=== PATIENT | male | born 1965 ===

== ENCOUNTER 2019-03-25 22:05 | Inpatient (IN) | payer MEDICAID, OTHER ==
[2019-03-25] MEDS ORDERED: Sodium Chloride 0.9% 1,000 ML IV STA ×2 (22:20→23:04)
[2019-03-25] MEDS ORDERED: Sodium Chloride 0.9% 1,000 ML IV SCH (22:30)
--- NOTE | 2019-03-25 22:31 | ED PDOC ---
Arrival/HPI - General Chief Complaint: GI Problem Time Seen by Provider: 03/25/19 22:09 Historian: Patient - Critical Care Critical Care Minutes: 45 minutes - History of Present Illness Narrative History of Present Illness (Text): 03/25/19 22:33 53 year old male, with a past medical history of liver cirrhosis and chronic alcohol abuse, who presents to the emergency department BIB ambulance following episode of vomiting of blood earlier today. Patient reports he was drinking beer earlier today. Patient endorses generalized weakness. He denies any abdominal pain or chest pain. Time/Duration: 24 hours Symptom Onset: Gradual Symptom Course: Unchanged Activities at Onset: Light Context: Home Past Medical History - Provider Review Nursing Documentation Reviewed: Yes - Cardiac Hx Cardiac Disorders: No - Pulmonary Hx Respiratory Disorders: No - Neurological Hx Neurological Disorder: No - HEENT Hx HEENT Disorder: No - Renal Hx Renal Disorder: No - Endocrine/Metabolic Hx Endocrine Disorders: No - Hematological/Oncological Hx Cirrhosis: Yes - Integumentary Hx Dermatological Disorder: No - Musculoskeletal/Rheumatological Hx Musculoskeletal Disorders: No - Gastrointestinal Hx Gastrointestinal Disorders: Yes Other/Comment: liver problem - Genitourinary/Gynecological Hx Genitourinary Disorders: No - Psychiatric Hx Psychophysiologic Disorder: No Hx Substance Use: No - Anesthesia Hx Anesthesia: No Family/Social History - Physician Review Nursing Documentation Reviewed: Yes Family/Social History: Unknown Family HX Smoking Status: Never Smoked Hx Alcohol Use: Yes Hx Substance Use: No Allergies/Home Meds Allergies/Adverse Reactions: Allergies guaifenesin [From Robitussin] Allergy (Verified 03/25/19 22:16) RASH Home Medications: Home Meds Medication Instructions Recorded Confirmed Folic Acid 1 mg PO DAILY 03/25/19 03/25/19 Review of Systems - Physician Review All systems were reviewed & negative as marked: Yes - Review of Systems Gastrointestinal: Vomiting, Hematemesis. absent: Abdominal Pain Physical Exam Vital Signs Reviewed: Yes Vital Signs Temp Pulse Resp BP Pulse Ox 03/25/19 22:05 97.7 F 115 H 20 88/51 L 100 Temperature: Afebrile Blood Pressure: Normal Pulse: Tachycardic Respiratory Rate: Normal Appearance: Positive for: Well-Appearing, Non-Toxic, Comfortable Pain Distress: None Mental Status: Positive for: Alert and Oriented X 3 - Systems Exam Head: Present: Atraumatic, Normocephalic Pupils: Present: PERRL Extroacular Muscles: Present: EOMI Conjunctiva: Present: Normal Mouth: Present: Moist Mucous Membranes Neck: Present: Normal Range of Motion, Other (neck supple) Respiratory/Chest: Present: Clear to Auscultation, Good Air Exchange. No: Respiratory Distress, Accessory Muscle Use Cardiovascular: Present: Regular Rate and Rhythm, Normal S1, S2. No: Murmurs Abdomen: Present: Other (abdomen soft). No: Tenderness, Distention, Peritoneal Signs Back: Present: Normal Inspection Upper Extremity: Present: Normal Inspection. No: Cyanosis, Edema Lower Extremity: Present: Normal Inspection. No: Edema Neurological: Present: GCS=15, Speech Normal Skin: Present: Warm, Dry, Normal Color, Other (few scattered areas of ecchymosis to legs and arms). No: Rashes Psychiatric: Present: Alert, Oriented x 3, Normal Insight, Normal Concentration Medical Decision Making ED Course and Treatment: 03/25/19 22:28 Impression: 53 year old male presents to the ED complaining of vomiting blood x earlier today. Differential Diagnosis included but are not limited to: Plan: -- EKG -- Labs -- Chest X-ray -- Protonix -- Iv fluids -- Zofran -- Sandostatin -- Reassess and disposition Prior Visits: Notes and results from previous visits were reviewed. Progress Notes: 03/25/19 22:40 Patient actively vomiting profuse amount of blood. Patient is in the process of receiving IV fluids. Stat O- blood. 03/25/19 23:06 Case was discussed with surgical senior resident who came to the emergency room to evaluate the patient and for central line placement. Dr. Chung, surgical service on consult. Case was discussed the GI fellow , under GI , agrees with current treatment, Iv PRBCs sandostatin, Iv protonix. recommend Iv Rocephin , will come to evaluate patient. Dr. Dixon, ground service equipment mechanic in the ED to evaluate patient, accepts to the intensive care unit.Patient admitted. - RAD Interpretation Radiology Orders: 03/25/19 22:17 CHEST PORTABLE [RAD] Stat - EKG Interpretation EKG Interpretation (Text): 03/25/19 22:38 EKG reviewed, shows: Sinus Tachycardia at 118 bpm, no acute changes. Interpreted by ED Physician: Yes - Medication Orders Current Medication Orders: Sodium Chloride (Sodium Chloride 0.9%) 1,000 mls @ 100 mls/hr IV .Q10H GERMAN Sodium Chloride (Sodium Chloride 0.9%) 1,000 mls @ 999 mls/hr IV .Q1H1M STA Stop: 03/25/19 23:20 Discontinued Medications Ondansetron HCl (Zofran Inj) 4 mg IVP ONCE ONE Stop: 03/25/19 22:19 Pantoprazole Sodium (Protonix Inj) 40 mg IVP ONCE STA Stop: 03/25/19 22:19 - Scribe Statement The provider has reviewed the documentation as recorded by the Amandaibcecilio Sanchez All medical record entries made by the Amandaibcecilio were at my direction and personally dictated by me. I have reviewed the chart and agree that the record accurately reflects my personal performance of the history, physical exam, medical decision making, and the department course for this patient. I have also personally directed, reviewed, and agree with the discharge instructions and disposition. Disposition/Present on Arrival - Present on Arrival Any Indicators Present on Arrival: No History of DVT/PE: No History of Uncontrolled Diabetes: No Urinary Catheter: No History of Decub. Ulcer: No History Surgical Site Infection Following: None - Disposition Have Diagnosis and Disposition been Completed?: Yes Diagnosis: Upper gastrointestinal bleed Disposition: HOSPITALIZED Disposition Time: 23:26 Patient Plan: Admission Patient Problems: Current Active Problems Problem Status Onset Upper gastrointestinal bleed Acute Condition: GUARDED
[2019-03-25 22:42] LABS: HEMOGLOBIN 9.4 g/dL (14.0-18.0); MEAN CELL VOLUME 102.2 fl (80.0-105.0); MEAN CORPUSCULAR HEMOGLOBIN 34.2 pg (25.0-35.0); MEAN CORPUSCULAR HGB CONC 33.5 g/dl (31.0-37.0); MEAN PLATELET VOLUME 11.3 fl (7.0-11.0); RBC 2.75 10^6/uL (3.5-6.1); RED CELL DISTRIBUTION WIDTH 15.5 % (11.5-14.5)
[2019-03-25 22:52] LABS: INR 1.59; PARTIAL THROMBOPLASTIN TIME 30.4 Seconds (26.9-38.3); PROTHROMBIN TIME 17.7 SECONDS (9.4-12.5)
[2019-03-25 22:53] LABS: ALB/GLOB RATIO 0.6 (1.1-1.8); ALBUMIN 2.7 g/dL (3.0-4.8); ALT/SGPT 16 U/L (7-56); AST/SGOT 135 U/L (17-59); BLOOD UREA NITROGEN 3 mg/dL (7-21); CALCIUM 7.9 mg/dL (8.4-10.5); GFR NON-AFRICAN AMERICAN > 60
[2019-03-25 23:05] LABS: TROPONIN I < 0.01 ng/mL
[2019-03-25] MEDS: Pantoprazole 40mg/100mL NS 40 MG/100 ML BAG IVPB SCH (23:15)
[2019-03-25] MEDS ORDERED: Potassium Chloride 20 mEq 100 ML IV ONE (23:17)
[2019-03-25] MEDS ORDERED: cefTRIAXone 1 gm 1 GM/100 ML BAG IV STA (23:17)
[2019-03-25 23:28] LABS: CK-MB 3.3 ng/mL (0.0-3.6)
--- NOTE | 2019-03-26 00:05 | PCM.PROC ---
Procedures Attestation:: I certify that I have explained the specified Operation(s) or Procedure(s), risks, benefits and reasonable alternatives to the Patient and/or other person responsible. The opportunity was given to ask questions and all questions answered - Central Line Placement Right Internal Jugular Triple Lumen Catheter Aseptic technique was employed throughout the procedure: Hand Hygiene done prior to procedure, Full sterile barriers (mask, hair cover, sterile gown, sterile gloves), Full body sterile drape, Chloraprep Antiseptic: 30 second prep for IJ or SC sites CVP Time Out Performed: Yes Pt. Placed on Pulse Ox Monitor: Yes Central Line Prep: Chlorhexidine-Alcohol Combination Local Anesthesia Used: Lidocaine 1% Amount of Anesthesia Used (mls): 5 Ultrasound Used for Placement: Yes Central Line Lumen Inserted: triple Central Line Length: 20 cm (15cm at the skin) Post Procedure: Sutured in Place, Good Blood Return, All Ports Aspirated, Flushed, Capped, Sterile Dressing Applied Secured by: Suture Post procedure dressing: Clear vapor permeable, Chlorhexidine disc (Biopatch) Post Procedure X-Ray: Yes Patient Tolerated Procedure: Well Immediate Complications: None Additional Comments: Dr. Machado supervised the placement of the central line.
[2019-03-26] MEDS ORDERED: Ketamine 10 mg/ml Inj (20 ml) IV ONE (00:25)
[2019-03-26] MEDS ORDERED: Ketamine 10 mg/ml Inj (20 ml) ONE (00:25)
[2019-03-26] MEDS ORDERED: Etomidate 20 mg/10ml Inj IVP STA (00:25)
[2019-03-26] MEDS ORDERED: Etomidate 20 mg/10ml Inj IV ONE (00:28)
--- NOTE | 2019-03-26 00:32 | CP.PCM.CON ---
<Travis Morse - Last Filed: 03/26/19 00:58> History of Present Illness - History of Present Illness History of Present Illness: PGY-4 GI Fellow GI Consult Note The following obtained from chart review due to clinical condition. Pt is a 53 yo HM with EtOH Cirrhosis, EtOH Abuse (last drink on 03/25/19) presenting with hematemesis. Pt reportedly had hematemesis at some with some generalized weakness/fatigue. Recent, ongoing EtOH abuse. Otherwise unable to obtain further details regarding history. In ED multiple episodes of hematemesis noted, pt tachycardic and hypotensive. Central line placed and intubated with more hematemesis noted post-intubation. He briefly became bradycardia and lost pulse but fairly quickly regain pulse post atropine and epinephrine. Unable to obtain ROS due to clinical condition. MHx: See above SurgHx: Unknown Meds: Reviewed in chart FamHx: Unknown SocHx: + EtOH Abuse (last drink reportedly on 03/27); Unknown others All: Guaifenesin Past Patient History - Past Social History Smoking Status: Never Smoked - CARDIAC Hx Cardiac Disorders: No - PULMONARY Hx Respiratory Disorders: No - NEUROLOGICAL Hx Neurological Disorder: No - HEENT Hx HEENT Problems: No - RENAL Hx Chronic Kidney Disease: No - ENDOCRINE/METABOLIC Hx Endocrine Disorders: No - HEMATOLOGICAL/ONCOLOGICAL Hx Cirrhosis: Yes - INTEGUMENTARY Hx Dermatological Problems: No - MUSCULOSKELETAL/RHEUMATOLOGICAL Hx Musculoskeletal Disorders: No - GASTROINTESTINAL Hx Gastrointestinal Disorders: Yes Other/Comment: liver problem - GENITOURINARY/GYNECOLOGICAL Hx Genitourinary Disorders: No - PSYCHIATRIC Hx Psychophysiologic Disorder: No Hx Substance Use: No - SURGICAL HISTORY Hx Surgeries: No - ANESTHESIA Hx Anesthesia: No Meds Allergies/Adverse Reactions: Allergies Allergy/AdvReac Type Severity Reaction Status Date / Time guaifenesin [From Serenasin] Allergy RASH Verified 03/25/19 22:16 - Medications Medications: Current Medications Sodium Chloride (Sodium Chloride 0.9%) 1,000 mls @ 100 mls/hr IV .Q10H GERMAN Last Admin: 03/25/19 22:50 Dose: 100 mls/hr Octreotide Acetate 1,250 mcg/ (Sodium Chloride) 252.5 mls @ 5.05 mls/hr IV .Q24H GERMAN; Protocol Last Admin: 03/25/19 23:10 Dose: 5.05 mls/hr Pantoprazole Sodium (Protonix 40mg Ivpb) 40 mg in 100 mls @ 20 mls/hr IVPB .Q5H GERMAN Last Admin: 03/25/19 23:15 Dose: 20 mls/hr Potassium Chloride (Potassium Chloride 20 Meq/100 Ml) 100 mls @ 50 mls/hr IV ONCE ONE Stop: 03/26/19 01:16 Physical Exam - Constitutional Appears: In Acute Distress, Chronically Ill - Head Exam Head Exam: ATRAUMATIC, NORMAL INSPECTION - Eye Exam Eye Exam: EOMI, Scleral icterus - ENT Exam ENT Exam: Mucous Membranes Moist. absent: Mucous Membranes Dry - Respiratory Exam Additional comments: symmetric expansion, coarse breath sounds anteriorly - Cardiovascular Exam Cardiovascular Exam: Tachycardia, RRR - GI/Abdominal Exam GI & Abdominal Exam: Diminished Bowel Sounds, Distended. absent: Bruit, Firm - Rectal Exam Rectal Exam: Deferred - Extremities Exam Extremities exam: Positive for: pedal edema (+1 bilateral in LE extremities) - Neurological Exam Additional comments: on vent, not alert - Skin Skin Exam: Warm Additional comments: jaundice with scattered area of dried blood. Results - Vital Signs Recent Vital Signs: Last Vital Signs Temp 96.3 F L 03/25/19 23:55 Pulse 117 H 03/25/19 23:56 Resp 16 03/25/19 23:56 BP 78/47 L 03/25/19 23:56 Pulse Ox 97 03/25/19 23:56 - Labs Result Diagrams: 03/25/19 22:37 03/25/19 22:37 Labs: Laboratory Results - last 24 hr 03/25/19 03/25/19 03/25/19 22:37 22:37 22:37 WBC 11.0 RBC 2.75 L Hgb 9.4 L Hct 28.1 L MCV 102.2 MCH 34.2 MCHC 33.5 RDW 15.5 H Plt Count 91 L MPV 11.3 H PT 17.7 H INR 1.59 APTT 30.4 Sodium 141 Potassium 3.3 L Chloride 108 H Carbon Dioxide 16 L Anion Gap 19 BUN 3 L Creatinine 0.9 Est GFR ( Amer) > 60 Est GFR (Non-Af Amer) > 60 Random Glucose 152 H Calcium 7.9 L Total Bilirubin 7.6 H AST 135 H ALT 16 Alkaline Phosphatase 263 H Lactate Dehydrogenase 599 Total Creatine Kinase 369 H CK-MB (CK-2) 3.3 CK-MB (CK-2) % Cancelled Troponin I < 0.01 Total Protein 7.0 Albumin 2.7 L Globulin 4.4 Albumin/Globulin Ratio 0.6 L Blood Type Blood Type Confirm Antibody Screen Crossmatch BBK History Checked 03/25/19 03/25/19 22:37 22:39 WBC RBC Hgb Hct MCV MCH MCHC RDW Plt Count MPV PT INR APTT Sodium Potassium Chloride Carbon Dioxide Anion Gap BUN Creatinine Est GFR ( Amer) Est GFR (Non-Af Amer) Random Glucose Calcium Total Bilirubin AST ALT Alkaline Phosphatase Lactate Dehydrogenase Total Creatine Kinase CK-MB (CK-2) CK-MB (CK-2) % Troponin I Total Protein Albumin Globulin Albumin/Globulin Ratio Blood Type A POSITIVE Blood Type Confirm A POSITIVE Antibody Screen Negative Crossmatch See Detail BBK History Checked No verified bt Assessment & Plan - Assessment and Plan (Free Text) Assessment: 53 yo Hisp male with EtOH Abuse, EtOH Cirrhosis presenting with hematemesis. # Hematemesis: Hemodynamically unstable. Concerning for portal HTN related bleed, possible variceal bleed. # EtOH Cirrhosis: MELD-Na 19. Active drinker. - EGD: None on file - Ascites: appreciated on exam, unknown if on diuretics - HCC: No prior imaging # EtOH Abuse: Last drink on 03/25 Plan: - Plan for emergent EGD - Aggressive IVF resuscitation per critical care - Goal Hgb 7-8 in setting of portal HTN - PPI and Octreotide gtts - Ceftriaxone or broad spectrum abx for SBP ppx - Will eventually need diagnostic tap (avoid large volume), fluid analysis - BCx, UA, UCx - Abd US with Duplex - Further recs pending EGD Pt discussed with Dr. Barrera; please see attestation for further recs/changes. <Anastacia Barrera - Last Filed: 03/26/19 02:26> Meds - Medications Medications: Current Medications Folic Acid (Folic Acid) 1 mg NG DAILY GERMAN Sodium Chloride (Sodium Chloride 0.9%) 1,000 mls @ 100 mls/hr IV .Q10H GERMAN Last Admin: 03/25/19 22:50 Dose: 100 mls/hr Octreotide Acetate 1,250 mcg/ (Sodium Chloride) 252.5 mls @ 5.05 mls/hr IV .Q24H GERMAN; Protocol Last Admin: 03/25/19 23:10 Dose: 5.05 mls/hr Pantoprazole Sodium (Protonix 40mg Ivpb) 40 mg in 100 mls @ 20 mls/hr IVPB .Q5H GERMAN Last Admin: 03/25/19 23:15 Dose: 20 mls/hr Albumin Human (Albumin Human 25% (25 Gm/100 Ml)) 100 mls @ 50 mls/hr IV Q2H GERMAN Stop: 03/26/19 04:59 Last Admin: 03/26/19 00:58 Dose: 50 mls/hr Sodium Bicarbonate 150 meq/ (Sodium Chloride) 1,150 mls @ 100 mls/hr IV .[id number] STA Stop: 03/26/19 12:43 Last Admin: 03/26/19 01:36 Dose: 100 mls/hr Dopamine HCl/Dextrose (Dopamine 400mg/250ml D5w) 400 mg in 250 mls @ 56.132 mls/hr IV .Q4H28M PRN; Protocol PRN Reason: TITRATE PER MD ORDER Last Admin: 03/26/19 00:50 Dose: 20 mcg/kg/min, 56.132 mls/hr Thiamine HCl (Vitamin B1 Tab) 100 mg NG DAILY [facility] Results - Vital Signs Recent Vital Signs: Last Vital Signs Temp 96.1 F L 03/26/19 00:45 Pulse 115 H 03/26/19 00:50 Resp 14 03/26/19 00:45 BP 46/36 L 03/26/19 00:50 Pulse Ox 97 03/25/19 23:56 - Labs Result Diagrams: 03/25/19 22:37 03/25/19 22:37 Labs: Laboratory Results - last 24 hr 03/25/19 03/25/19 03/25/19 22:37 22:37 22:37 WBC 11.0 RBC 2.75 L Hgb 9.4 L Hct 28.1 L MCV 102.2 MCH 34.2 MCHC 33.5 RDW 15.5 H Plt Count 91 L MPV 11.3 H PT 17.7 H INR 1.59 APTT 30.4 pCO2 pO2 HCO3 ABG pH ABG Total CO2 ABG O2 Saturation ABG Base Excess ABG Potassium Glucose Lactate FiO2 Crit Value Called To Crit Value Called By Blood Gas Notified Time Sodium 141 Potassium 3.3 L Chloride 108 H Carbon Dioxide 16 L Anion Gap 19 BUN 3 L Creatinine 0.9 Est GFR ( Amer) > 60 Est GFR (Non-Af Amer) > 60 Random Glucose 152 H Calcium 7.9 L Total Bilirubin 7.6 H AST 135 H ALT 16 Alkaline Phosphatase 263 H Lactate Dehydrogenase 599 Total Creatine Kinase 369 H CK-MB (CK-2) 3.3 CK-MB (CK-2) % Cancelled Troponin I < 0.01 Total Protein 7.0 Albumin 2.7 L Globulin 4.4 Albumin/Globulin Ratio 0.6 L Arterial Blood Potassium Alcohol, Quantitative Blood Type Blood Type Confirm Antibody Screen Crossmatch BBK History Checked 03/25/19 03/25/19 03/25/19 22:37 22:37 22:39 WBC RBC Hgb Hct MCV MCH MCHC RDW Plt Count MPV PT INR APTT pCO2 pO2 HCO3 ABG pH ABG Total CO2 ABG O2 Saturation ABG Base Excess ABG Potassium Glucose Lactate FiO2 Crit Value Called To Crit Value Called By Blood Gas Notified Time Sodium Potassium Chloride Carbon Dioxide Anion Gap BUN Creatinine Est GFR ( Amer) Est GFR (Non-Af Amer) Random Glucose Calcium Total Bilirubin AST ALT Alkaline Phosphatase Lactate Dehydrogenase Total Creatine Kinase CK-MB (CK-2) CK-MB (CK-2) % Troponin I Total Protein Albumin Globulin Albumin/Globulin Ratio Arterial Blood Potassium Alcohol, Quantitative 231 H Blood Type A POSITIVE Blood Type Confirm A POSITIVE Antibody Screen Negative Crossmatch See Detail BBK History Checked No verified bt 03/26/19 00:50 WBC RBC Hgb Hct MCV MCH MCHC RDW Plt Count MPV PT INR APTT pCO2 59 H pO2 24.0 L* HCO3 10.8 L ABG pH 6.87 L* ABG Total CO2 12.6 L ABG O2 Saturation 27.3 L ABG Base Excess -23.0 L ABG Potassium 3.2 L Glucose 163 H Lactate 10.5 H* FiO2 100.0 Crit Value Called To Dr loyd Crit Value Called By Rt Blood Gas Notified Time 100 Sodium 149.0 H Potassium Chloride 120.0 H Carbon Dioxide Anion Gap BUN Creatinine Est GFR ( Amer) Est GFR (Non-Af Amer) Random Glucose Calcium Total Bilirubin AST ALT Alkaline Phosphatase Lactate Dehydrogenase Total Creatine Kinase CK-MB (CK-2) CK-MB (CK-2) % Troponin I Total Protein Albumin Globulin Albumin/Globulin Ratio Arterial Blood Potassium 3.2 L Alcohol, Quantitative Blood Type Blood Type Confirm Antibody Screen Crossmatch BBK History Checked Attending/Attestation - Attestation I have personally seen and examined this patient.: Yes I have fully participated in the care of the patient.: Yes I have reviewed all pertinent clinical information: Yes Notes (Text): 03/26/19 02:22 I have seen and examined the pt with the GI fellow. This is a 53 yo M with active EtOH abuse and decompensated cirrhosis presenting with multiple episodes of hematemesis at home and in the ER, totalling approximately 3.5L. Pt tachycardic with persistent hypotension now s/p intubation and started on dopamine gtt for pressor support. Started on ppi gtt and octreotide gtt. BP ~40/20. Received 4U RBCs. Discussed high risk of mortality and morbidity given situation, but pt's daughter states they want everything done. Will proceed with bedside EGD at this time.
[2019-03-26] MEDS ORDERED: [UNRECOGNIZED DRUG - OTHER] IV ONE (00:48)
[2019-03-26] MEDS ORDERED: DOPAMINE 400 MG/250 ML IV ONE (00:48)
[2019-03-26] MEDS: DOPamine 400mg/250ml D5W 400 MG/250 ML BAG IV PRN ×2 (00:50→08:00)
[2019-03-26 01:00] LABS: ARTERIAL BLOOD GAS HCO3 10.8 mmol/L (21-28); ARTERIAL BLOOD GAS O2 SAT 27.3 % (95-98); ARTERIAL BLOOD GAS PCO2 59 mm/Hg (35-45); ARTERIAL BLOOD GAS PH 6.87 (7.35-7.45); ARTERIAL BLOOD GAS TCO2 12.6 mmol.L (22-28)
[2019-03-26] MEDS ORDERED: Sodium Bicarbonate (8.4%) 50 Meq Syringe IVP ONE ×3 (01:09→01:13)
--- NOTE | 2019-03-26 01:19 | CP.PCM.CON ---
History of Present Illness - History of Present Illness History of Present Illness: General Surgery Consult Re: GI bleed HPI: 53M with presenting with hematemesis. Per Daughter, pt had 2x hematemesis at home and some general weakness/fatigue. Had been diagnosed in the past with cirrhosis and told to stop EtOH use but later relapsed. Daughter also noted he had begun having nosebleeds and bleeding gums recently. When pt examined at bedside had several episodes of hematemesis. Unable to obtain ROS due to AMS. Pt continued to become more confused. Pt was tachycardic and hypotensive. 2U PRBCs and 2L NS bolus given. Central line placed and intubated with more hematemesis noted post-intubation. Had several episodes of bradycardia during this time and eventually lost pulse after intubation. Had ROSC post CPR, atropine, and 2x epinephrine. Ash-Casiano Class: C Meld-NA: 19 PMH: EtOH Cirrhosis, EtOH Abuse (last drink on 03/25/19) PSH: Denied by daughter Meds: See MAR FH: Non Contributory SH: + EtOH Abuse (last drink today 03/25) Drinks 12-15 Beers. No tobacco use or drug use All: Guaifenesin Review of Systems - Review of Systems Systems not reviewed;Unavailable: Altered Mental Status Past Patient History - Past Social History Smoking Status: Never Smoked - CARDIAC Hx Cardiac Disorders: No - PULMONARY Hx Respiratory Disorders: No - NEUROLOGICAL Hx Neurological Disorder: No - HEENT Hx HEENT Problems: No - RENAL Hx Chronic Kidney Disease: No - ENDOCRINE/METABOLIC Hx Endocrine Disorders: No - HEMATOLOGICAL/ONCOLOGICAL Hx Cirrhosis: Yes - INTEGUMENTARY Hx Dermatological Problems: No - MUSCULOSKELETAL/RHEUMATOLOGICAL Hx Musculoskeletal Disorders: No - GASTROINTESTINAL Hx Gastrointestinal Disorders: Yes Other/Comment: liver problem - GENITOURINARY/GYNECOLOGICAL Hx Genitourinary Disorders: No - PSYCHIATRIC Hx Psychophysiologic Disorder: No Hx Substance Use: No - SURGICAL HISTORY Hx Surgeries: No - ANESTHESIA Hx Anesthesia: No Meds Allergies/Adverse Reactions: Allergies Allergy/AdvReac Type Severity Reaction Status Date / Time guaifenesin [From Shaggy] Allergy RASH Verified 03/25/19 22:16 - Medications Medications: Current Medications Sodium Chloride (Sodium Chloride 0.9%) 1,000 mls @ 100 mls/hr IV .Q10H GERMAN Last Admin: 03/25/19 22:50 Dose: 100 mls/hr Octreotide Acetate 1,250 mcg/ (Sodium Chloride) 252.5 mls @ 5.05 mls/hr IV .Q24H GERMAN; Protocol Last Admin: 03/25/19 23:10 Dose: 5.05 mls/hr Pantoprazole Sodium (Protonix 40mg Ivpb) 40 mg in 100 mls @ 20 mls/hr IVPB .Q5H GERMAN Last Admin: 03/25/19 23:15 Dose: 20 mls/hr Potassium Chloride (Potassium Chloride 20 Meq/100 Ml) 100 mls @ 50 mls/hr IV ONCE ONE Stop: 03/26/19 01:16 Albumin Human (Albumin Human 25% (25 Gm/100 Ml)) 100 mls @ 50 mls/hr IV Q2H GERMAN Stop: 03/26/19 04:59 Physical Exam - Constitutional Appears: In Acute Distress, Chronically Ill - Head Exam Head Exam: ATRAUMATIC, NORMOCEPHALIC - Eye Exam Eye Exam: EOMI, Scleral icterus - ENT Exam ENT Exam: Mucous Membranes Dry Additional comments: old blood in mouth trachea midline. - Neck Exam Neck exam: Negative for: Tenderness, Thyromegaly - Respiratory Exam Additional comments: Intubated - Cardiovascular Exam Cardiovascular Exam: Tachycardia, REGULAR RHYTHM - GI/Abdominal Exam GI & Abdominal Exam: Hernia (umbilican), Soft. absent: Distended, Firm, Guarding, Rebound, Rigid, Tenderness - Rectal Exam Rectal Exam: Deferred - Extremities Exam Extremities exam: Negative for: calf tenderness, pedal edema - Back Exam Back exam: absent: CVA tenderness (L), CVA tenderness (R) - Neurological Exam Neurological exam: Altered - Skin Skin Exam: Dry Additional comments: jaundice Results - Vital Signs Recent Vital Signs: Last Vital Signs Temp 96.3 F L 03/25/19 23:55 Pulse 117 H 03/25/19 23:56 Resp 16 03/25/19 23:56 BP 78/47 L 03/25/19 23:56 Pulse Ox 97 03/25/19 23:56 - Labs Result Diagrams: 03/25/19 22:37 03/25/19 22:37 Labs: Laboratory Results - last 24 hr 03/25/19 03/25/19 03/25/19 22:37 22:37 22:37 WBC 11.0 RBC 2.75 L Hgb 9.4 L Hct 28.1 L MCV 102.2 MCH 34.2 MCHC 33.5 RDW 15.5 H Plt Count 91 L MPV 11.3 H PT 17.7 H INR 1.59 APTT 30.4 pCO2 pO2 HCO3 ABG pH ABG Total CO2 ABG O2 Saturation ABG Base Excess ABG Potassium Glucose Lactate FiO2 Crit Value Called To Crit Value Called By Blood Gas Notified Time Sodium 141 Potassium 3.3 L Chloride 108 H Carbon Dioxide 16 L Anion Gap 19 BUN 3 L Creatinine 0.9 Est GFR ( Amer) > 60 Est GFR (Non-Af Amer) > 60 Random Glucose 152 H Calcium 7.9 L Total Bilirubin 7.6 H AST 135 H ALT 16 Alkaline Phosphatase 263 H Lactate Dehydrogenase 599 Total Creatine Kinase 369 H CK-MB (CK-2) 3.3 CK-MB (CK-2) % Cancelled Troponin I < 0.01 Total Protein 7.0 Albumin 2.7 L Globulin 4.4 Albumin/Globulin Ratio 0.6 L Arterial Blood Potassium Alcohol, Quantitative Blood Type Blood Type Confirm Antibody Screen Crossmatch BBK History Checked 03/25/19 03/25/19 03/25/19 22:37 22:37 22:39 WBC RBC Hgb Hct MCV MCH MCHC RDW Plt Count MPV PT INR APTT pCO2 pO2 HCO3 ABG pH ABG Total CO2 ABG O2 Saturation ABG Base Excess ABG Potassium Glucose Lactate FiO2 Crit Value Called To Crit Value Called By Blood Gas Notified Time Sodium Potassium Chloride Carbon Dioxide Anion Gap BUN Creatinine Est GFR ( Amer) Est GFR (Non-Af Amer) Random Glucose Calcium Total Bilirubin AST ALT Alkaline Phosphatase Lactate Dehydrogenase Total Creatine Kinase CK-MB (CK-2) CK-MB (CK-2) % Troponin I Total Protein Albumin Globulin Albumin/Globulin Ratio Arterial Blood Potassium Alcohol, Quantitative 231 H Blood Type A POSITIVE Blood Type Confirm A POSITIVE Antibody Screen Negative Crossmatch See Detail BBK History Checked No verified bt 03/26/19 00:50 WBC RBC Hgb Hct MCV MCH MCHC RDW Plt Count MPV PT INR APTT pCO2 59 H pO2 24.0 L* HCO3 10.8 L ABG pH 6.87 L* ABG Total CO2 12.6 L ABG O2 Saturation 27.3 L ABG Base Excess -23.0 L ABG Potassium 3.2 L Glucose 163 H Lactate 10.5 H* FiO2 100.0 Crit Value Called To Dr loyd Crit Value Called By Rt Blood Gas Notified Time 100 Sodium 149.0 H Potassium Chloride 120.0 H Carbon Dioxide Anion Gap BUN Creatinine Est GFR ( Amer) Est GFR (Non-Af Amer) Random Glucose Calcium Total Bilirubin AST ALT Alkaline Phosphatase Lactate Dehydrogenase Total Creatine Kinase CK-MB (CK-2) CK-MB (CK-2) % Troponin I Total Protein Albumin Globulin Albumin/Globulin Ratio Arterial Blood Potassium 3.2 L Alcohol, Quantitative Blood Type Blood Type Confirm Antibody Screen Crossmatch BBK History Checked - EKG Data EKG Interpreted by: Myself EKG shows normal: Sinus rhythm Rate: Tachycardia - Imaging and Cardiology Chest x-ray Status: Image reviewed by me Assessment & Plan - Assessment and Plan (Free Text) Assessment: 53M with Likely Upper GI bleed secondary to varices from EtOH cirrhosis Plan: Monitor H&H Transfuse 1:1:1 as needed GI Eval If no GI intervention possible, recommend IR for angio embolization and possible TIPS If available in hospital could consider placing emily tube for temporary control if needed Ash Class C makes him very high risk for any surgical intervention with 80% mortality Would be unlikely to be placed on a transplant list due to recent EtOH abuse. Consider Hepatobiliary consult D/W Dr. Matheus Gardner PGY4
--- NOTE | 2019-03-26 01:52 | CP.PCM.HP ---
<Ace Palm - Last Filed: 03/26/19 04:44> History of Present Illness - History of Present Illness History of Present Illness: Ace Palm Internal Medicine Resident- H&P on Behalf of the Hospitalist Team Subjective: CC: Vomiting Blood Patient is a 53 year old male with a past medical history of EtOH Cirrhosis, EtOH Abuse (last drink on 03/25/19) who presented to the emergency department for evaluation and treatment of vomiting blood. As per records, the patient c omplained of bright red blood per mouth. He admitted ongoing EtOH abuse and generalized weakness and fatigue. Further subjective data cannot be ascertained from patient at this time due to patients clinical condition. 12 point ROS cannot be ascertained at this time due to altered mental status Past Medical History: EtOH Cirrhosis, EtOH Abuse Past Surgical History: Unknown Family History: Unknown Social History: + EtOH Abuse (last drink reportedly on 03/25); Unknown tobacco and illicit drug use history Allergies: Guaifenesin Meds: Unknown Physical Examination: - Constitutional Appears: Chronically Ill - Head Exam Head Exam: ATRAUMATIC, NORMAL INSPECTION - Eye Exam Eye Exam: EOMI, Scleral icterus - ENT Exam ENT Exam: + ETT - Respiratory Exam Additional comments: symmetric expansion, coarse breath sounds anteriorly - Cardiovascular Exam Cardiovascular Exam: Tachycardia, RRR - GI/Abdominal Exam GI & Abdominal Exam: Diminished Bowel Sounds, Distended, Umbilical hernia, Positive fluid wave - Extremities Exam Extremities exam: trace edema bilateral in LE extremities - Neurological Exam Additional comments: not alert - Skin Skin Exam: Warm Additional comments: jaundice Assessment and Plan: Patient is a 53 year old male with a past medical history of EtOH Cirrhosis, EtOH Abuse (last drink on 03/25/19) who presented to the emergency department for evaluation and treatment of vomiting blood. In the emergency department the patient experienced multiple episodes of hematemesis and developed tachycardia and hypotension. As per records the patient became bradycardic and lost pulses. Patient achieved rosc status post CPR, atropine, and 2x epinephrine. Patient was intubated and placed on ventilator. Central line was placed. Patient transferred to the ICU for further care. Hemorrhagic Shock - patient given 2 L NS challenge whilst remaining hypotensive - start on dopamine @ 20mcg/kg/min with goal MAP > 65 - transfuse pRBCs with goal Hgb 7-8 in setting of portal HTN GI Hemorrhage, Hematemesis - variceal bleed, suspected portal HTN- 3 bands deployed - transfused 4 units pRBCs with goal Hgb 7-8 in setting of portal HTN - given octreotide 50mcg IVP x 1, continue octreotide drip @ 50mcg/hr - continue protonix drip @ 20mls/hr - keep patient NPO - 2 large bore peripheral IVs - CBCs q4h - GI consulted- plan for emergent endoscopy - Surgery consulted- if no GI intervention possible, recommend IR for angio embolization and possible TIPS Hypoxemic, Hypercapnic Respiratory Failure - patient is intubated - continue on ventilator PRVC Tv- 450, RR-18 , FiO2-100 , PEEP- 0 - weaning trials daily Gapped Metabolic Acidosis with Concomitant Respiratory Acidosis - secondary to lactic acidosis and decreased respiratory drive s/p cardiac arrest - continue sodium bicarbonate @ 100cc/hr - continue on ventilator - repeat ABG in AM EtOH Cirrhosis - Ash-Casiano Class: C - Meld-NA: 19 - continue albumin 25gm/100ml x 2 ETOH Abuse - CIWA- monitor for potential withdrawl - start thiamine and folate supplements via NGT once NGT can be placed with GIs permission - consider ativan for withdrawl sxs pending improvement in patients mental status Ascites, Elevated T. Bilirubin, Elevated AST - start ceftriaxone 2 grams IV daily for SBP ppx - diagnostic tap when stable - BCx, UA, UCx ordered and pending - Abd US with Duplex ordered and pending Hypokalemia - repleted - monitor closely via am CMP Prophylaxis - DVT ppx- SCDs - GI ppx- on protonix drip Patient case discussed with and plan approved by attending physician, Dr. Dixon. Present on Admission - Present on Admission Any Indicators Present on Admission: No Past Patient History - Past Social History Smoking Status: Never Smoked - CARDIAC Hx Cardiac Disorders: No - PULMONARY Hx Respiratory Disorders: No - NEUROLOGICAL Hx Neurological Disorder: No - HEENT Hx HEENT Problems: No - RENAL Hx Chronic Kidney Disease: No - ENDOCRINE/METABOLIC Hx Endocrine Disorders: No - HEMATOLOGICAL/ONCOLOGICAL Hx Cirrhosis: Yes - INTEGUMENTARY Hx Dermatological Problems: No - MUSCULOSKELETAL/RHEUMATOLOGICAL Hx Musculoskeletal Disorders: No - GASTROINTESTINAL Hx Gastrointestinal Disorders: Yes Other/Comment: liver problem - GENITOURINARY/GYNECOLOGICAL Hx Genitourinary Disorders: No - PSYCHIATRIC Hx Psychophysiologic Disorder: No Hx Substance Use: No - SURGICAL HISTORY Hx Surgeries: No - ANESTHESIA Hx Anesthesia: No Meds Allergies/Adverse Reactions: Allergies Allergy/AdvReac Type Severity Reaction Status Date / Time guaifenesin [From [place]] Allergy RASH Verified 03/25/19 22:16 Results - Vital Signs Recent Vital Signs: Last Vital Signs Temp 96.3 F L 03/25/19 23:55 Pulse 117 H 03/25/19 23:56 Resp 16 03/25/19 23:56 BP 78/47 L 03/25/19 23:56 Pulse Ox 97 03/25/19 23:56 - Labs Result Diagrams: 03/26/19 02:29 03/25/19 22:37 Labs: Laboratory Results - last 24 hr 03/25/19 03/25/19 03/25/19 22:37 22:37 22:37 WBC 11.0 RBC 2.75 L Hgb 9.4 L Hct 28.1 L MCV 102.2 MCH 34.2 MCHC 33.5 RDW 15.5 H Plt Count 91 L MPV 11.3 H PT 17.7 H INR 1.59 APTT 30.4 pCO2 pO2 HCO3 ABG pH ABG Total CO2 ABG O2 Saturation ABG Base Excess ABG Potassium Glucose Lactate FiO2 Crit Value Called To Crit Value Called By Blood Gas Notified Time Sodium 141 Potassium 3.3 L Chloride 108 H Carbon Dioxide 16 L Anion Gap 19 BUN 3 L Creatinine 0.9 Est GFR ( Amer) > 60 Est GFR (Non-Af Amer) > 60 Random Glucose 152 H Calcium 7.9 L Total Bilirubin 7.6 H AST 135 H ALT 16 Alkaline Phosphatase 263 H Lactate Dehydrogenase 599 Total Creatine Kinase 369 H CK-MB (CK-2) 3.3 CK-MB (CK-2) % Cancelled Troponin I < 0.01 Total Protein 7.0 Albumin 2.7 L Globulin 4.4 Albumin/Globulin Ratio 0.6 L Arterial Blood Potassium Alcohol, Quantitative Blood Type Blood Type Confirm Antibody Screen Crossmatch BBK History Checked 03/25/19 03/25/19 03/25/19 22:37 22:37 22:39 WBC RBC Hgb Hct MCV MCH MCHC RDW Plt Count MPV PT INR APTT pCO2 pO2 HCO3 ABG pH ABG Total CO2 ABG O2 Saturation ABG Base Excess ABG Potassium Glucose Lactate FiO2 Crit Value Called To Crit Value Called By Blood Gas Notified Time Sodium Potassium Chloride Carbon Dioxide Anion Gap BUN Creatinine Est GFR ( Amer) Est GFR (Non-Af Amer) Random Glucose Calcium Total Bilirubin AST ALT Alkaline Phosphatase Lactate Dehydrogenase Total Creatine Kinase CK-MB (CK-2) CK-MB (CK-2) % Troponin I Total Protein Albumin Globulin Albumin/Globulin Ratio Arterial Blood Potassium Alcohol, Quantitative 231 H Blood Type A POSITIVE Blood Type Confirm A POSITIVE Antibody Screen Negative Crossmatch See Detail BBK History Checked No verified bt 03/26/19 00:50 WBC RBC Hgb Hct MCV MCH MCHC RDW Plt Count MPV PT INR APTT pCO2 59 H pO2 24.0 L* HCO3 10.8 L ABG pH 6.87 L* ABG Total CO2 12.6 L ABG O2 Saturation 27.3 L ABG Base Excess -23.0 L ABG Potassium 3.2 L Glucose 163 H Lactate 10.5 H* FiO2 100.0 Crit Value Called To Dr dixon Crit Value Called By Rt Blood Gas Notified Time 100 Sodium 149.0 H Potassium Chloride 120.0 H Carbon Dioxide Anion Gap BUN Creatinine Est GFR ( Amer) Est GFR (Non-Af Amer) Random Glucose Calcium Total Bilirubin AST ALT Alkaline Phosphatase Lactate Dehydrogenase Total Creatine Kinase CK-MB (CK-2) CK-MB (CK-2) % Troponin I Total Protein Albumin Globulin Albumin/Globulin Ratio Arterial Blood Potassium 3.2 L Alcohol, Quantitative Blood Type Blood Type Confirm Antibody Screen Crossmatch BBK History Checked <Karolina Dixon - Last Filed: 03/26/19 09:00> Results - Vital Signs Recent Vital Signs: Last Vital Signs Temp 91.6 F L 03/26/19 08:10 Pulse 115 H 03/26/19 08:10 Resp 21 03/26/19 07:20 BP 53/28 L 03/26/19 08:00 Pulse Ox 100 03/26/19 08:10 - Labs Result Diagrams: 03/26/19 05:10 03/26/19 05:10 Labs: Laboratory Results - last 24 hr 03/25/19 03/25/19 03/25/19 22:37 22:37 22:37 WBC 11.0 RBC 2.75 L Hgb 9.4 L Hct 28.1 L MCV 102.2 MCH 34.2 MCHC 33.5 RDW 15.5 H Plt Count 91 L MPV 11.3 H Neut % (Auto) Lymph % (Auto) [place] % (Auto) Eos % (Auto) Baso % (Auto) Lymph # (Auto) [place] # (Auto) Eos # (Auto) Baso # (Auto) Absolute Neuts (auto) PT 17.7 H INR 1.59 APTT 30.4 pCO2 pO2 HCO3 ABG pH ABG Total CO2 ABG O2 Saturation ABG Base Excess ABG Potassium Glucose Lactate FiO2 Crit Value Called To Crit Value Called By Blood Gas Notified Time Sodium 141 Potassium 3.3 L Chloride 108 H Carbon Dioxide 16 L Anion Gap 19 BUN 3 L Creatinine 0.9 Est GFR ( Amer) > 60 Est GFR (Non-Af Amer) > 60 Random Glucose 152 H Calcium 7.9 L Magnesium Iron TIBC % Saturation Total Bilirubin 7.6 H AST 135 H ALT 16 Alkaline Phosphatase 263 H Lactate Dehydrogenase 599 Total Creatine Kinase 369 H CK-MB (CK-2) 3.3 CK-MB (CK-2) % Cancelled Troponin I < 0.01 Total Protein 7.0 Albumin 2.7 L Globulin 4.4 Albumin/Globulin Ratio 0.6 L Triglycerides Cholesterol LDL Cholesterol Direct HDL Cholesterol Arterial Blood Potassium Alcohol, Quantitative Blood Type Blood Type Confirm Antibody Screen Crossmatch BBK History Checked 03/25/19 03/25/19 03/25/19 22:37 22:37 22:37 WBC RBC Hgb Hct MCV MCH MCHC RDW Plt Count MPV Neut % (Auto) Lymph % (Auto) [place] % (Auto) Eos % (Auto) Baso % (Auto) Lymph # (Auto) [place] # (Auto) Eos # (Auto) Baso # (Auto) Absolute Neuts (auto) PT INR APTT pCO2 pO2 HCO3 ABG pH ABG Total CO2 ABG O2 Saturation ABG Base Excess ABG Potassium Glucose Lactate FiO2 Crit Value Called To Crit Value Called By Blood Gas Notified Time Sodium Potassium Chloride Carbon Dioxide Anion Gap BUN Creatinine Est GFR ( Amer) Est GFR (Non-Af Amer) Random Glucose Calcium Magnesium 2.1 Iron TIBC % Saturation Total Bilirubin AST ALT Alkaline Phosphatase Lactate Dehydrogenase Total Creatine Kinase CK-MB (CK-2) CK-MB (CK-2) % Troponin I Total Protein Albumin Globulin Albumin/Globulin Ratio Triglycerides 229 H Cholesterol 193 LDL Cholesterol Direct 112 HDL Cholesterol 17 L Arterial Blood Potassium Alcohol, Quantitative 231 H Blood Type A POSITIVE Blood Type Confirm Antibody Screen Negative Crossmatch See Detail BBK History Checked No verified bt 03/25/19 03/25/19 03/26/19 22:37 22:39 00:50 WBC RBC Hgb Hct MCV MCH MCHC RDW Plt Count MPV Neut % (Auto) Lymph % (Auto) [place] % (Auto) Eos % (Auto) Baso % (Auto) Lymph # (Auto) [place] # (Auto) Eos # (Auto) Baso # (Auto) Absolute Neuts (auto) PT INR APTT pCO2 59 H pO2 24.0 L* HCO3 10.8 L ABG pH 6.87 L* ABG Total CO2 12.6 L ABG O2 Saturation 27.3 L ABG Base Excess -23.0 L ABG Potassium 3.2 L Glucose 163 H Lactate 10.5 H* FiO2 100.0 Crit Value Called To Dr dixon Crit Value Called By Rt Blood Gas Notified Time 100 Sodium 149.0 H Potassium Chloride 120.0 H Carbon Dioxide Anion Gap BUN Creatinine Est GFR ( Amer) Est GFR (Non-Af Amer) Random Glucose Calcium Magnesium Iron 133 TIBC 242 L % Saturation 55 Total Bilirubin AST ALT Alkaline Phosphatase Lactate Dehydrogenase Total Creatine Kinase CK-MB (CK-2) CK-MB (CK-2) % Troponin I Total Protein Albumin Globulin Albumin/Globulin Ratio Triglycerides Cholesterol LDL Cholesterol Direct HDL Cholesterol Arterial Blood Potassium 3.2 L Alcohol, Quantitative Blood Type Blood Type Confirm A POSITIVE Antibody Screen Crossmatch BBK History Checked 03/26/19 03/26/19 03/26/19 02:05 02:29 05:10 WBC 7.7 D RBC 2.25 L Hgb 6.8 L* D Hct 21.5 L MCV 95.6 D MCH 30.2 MCHC 31.6 RDW 15.7 H Plt Count 27 L* MPV 13.3 H Neut % (Auto) 56.1 Lymph % (Auto) 32.0 [place] % (Auto) 9.4 H Eos % (Auto) 2.0 Baso % (Auto) 0.5 Lymph # (Auto) 2.5 [place] # (Auto) 0.7 H Eos # (Auto) 0.2 Baso # (Auto) 0.04 Absolute Neuts (auto) 4.31 PT INR APTT pCO2 34 L pO2 45.0 L HCO3 8.6 L* ABG pH 7.01 L* ABG Total CO2 9.6 L ABG O2 Saturation TEST NOT PERFORMED ABG Base Excess -21.7 L ABG Potassium 3.7 Glucose 123 H Lactate 13.1 H* FiO2 100.0 Crit Value Called To Minnie pyle seed corn manager production Crit Value Called By Arnaldo Blood Gas Notified Time 240 Sodium 150.0 H 148 Potassium 5.3 H Chloride 121.0 H 116 H Carbon Dioxide 8 L D Anion Gap 29 H BUN 3 L Creatinine 1.2 Est GFR ( Amer) > 60 Est GFR (Non-Af Amer) > 60 Random Glucose 94 Calcium 6.0 L* Magnesium Iron TIBC % Saturation Total Bilirubin 2.2 H AST 394 H D ALT 43 Alkaline Phosphatase 49 Lactate Dehydrogenase Total Creatine Kinase CK-MB (CK-2) CK-MB (CK-2) % Troponin I 0.29 H* D Total Protein 2.9 L Albumin 1.5 L Globulin 1.4 Albumin/Globulin Ratio 1.0 L Triglycerides Cholesterol LDL Cholesterol Direct HDL Cholesterol Arterial Blood Potassium 3.7 Alcohol, Quantitative Blood Type Blood Type Confirm Antibody Screen Crossmatch BBK History Checked 03/26/19 03/26/19 03/26/19 05:10 06:30 06:50 WBC 10.8 D RBC 1.63 L Hgb 4.8 L* D Hct 15.8 L* MCV 96.9 MCH 29.4 MCHC 30.4 L RDW 16.2 H Plt Count 23 L* MPV 9.9 Neut % (Auto) Lymph % (Auto) [place] % (Auto) Eos % (Auto) Baso % (Auto) Lymph # (Auto) [place] # (Auto) Eos # (Auto) Baso # (Auto) Absolute Neuts (auto) PT INR APTT pCO2 40 38 pO2 20.0 L* 19.0 L* HCO3 7.3 L* 6.6 L* ABG pH 6.87 L* 6.85 L* ABG Total CO2 8.5 L 7.8 L ABG O2 Saturation 25.4 L 25.5 L ABG Base Excess -25.8 L -26.8 L ABG Potassium 5.7 H 5.5 H Glucose 85 76 Lactate 17.5 H* 16.3 H* FiO2 100.0 100.0 Crit Value Called To Ricki nava rn ccu Crit Value Called By Morena Mcintosh Blood Gas Notified Time 636 705 Sodium 145.0 147.0 Potassium Chloride 113.0 H 116.0 H Carbon Dioxide Anion Gap BUN Creatinine Est GFR ( Amer) Est GFR (Non-Af Amer) Random Glucose Calcium Magnesium Iron TIBC % Saturation Total Bilirubin AST ALT Alkaline Phosphatase Lactate Dehydrogenase Total Creatine Kinase CK-MB (CK-2) CK-MB (CK-2) % Troponin I Total Protein Albumin Globulin Albumin/Globulin Ratio Triglycerides Cholesterol LDL Cholesterol Direct HDL Cholesterol Arterial Blood Potassium 5.7 H 5.5 H Alcohol, Quantitative Blood Type Blood Type Confirm Antibody Screen Crossmatch BBK History Checked Attending/Attestation - Attestation I have personally seen and examined this patient.: Yes I have fully participated in the care of the patient.: Yes I have reviewed all pertinent clinical information: Yes Notes (Text): 03/26/19 08:58 Patient was seen when he was in bed # 6 in the ER. Medical record was reviewed. Agree with history, physical examination, assessment and plan. # 8 ETT was inserted without difficulty. ABG was drawn from femoral vein # 3. NGT was ordered /inserted. CCT time spent wa s30 minutes.
[2019-03-26 02:46] LABS: ARTERIAL BLOOD GAS HCO3 8.6 mmol/L (21-28); ARTERIAL BLOOD GAS PCO2 34 mm/Hg (35-45); ARTERIAL BLOOD GAS PH 7.01 (7.35-7.45); ARTERIAL BLOOD GAS TCO2 9.6 mmol.L (22-28)
[2019-03-26] MEDS: Pantoprazole 40mg/100mL NS 40 MG/100 ML BAG IVPB SCH ×2 (02:55→07:40)
[2019-03-26 03:10] LABS: IRON 133 ug/dL (45-180)
[2019-03-26 03:19] LABS: % IRON SATURATION 55 % (20-55); TOTAL IRON BINDING CAPACITY 242 ug/dL (261-462)
[2019-03-26 03:27] LABS: BASO # 0.04 K/mm3 (0.0-2.0); BASO % 0.5 % (0.0-3.0); EOS # 0.2 (0.0-0.7); LYMPH # 2.5 (1.2-3.4); MEAN CORPUSCULAR HEMOGLOBIN 30.2 pg (25.0-35.0); MEAN CORPUSCULAR HGB CONC 31.6 g/dl (31.0-37.0); MEAN PLATELET VOLUME 13.3 fl (7.0-11.0); MONO # 0.7 (0.1-0.6); MONO % 9.4 % (1.0-6.0); RBC 2.25 10^6/uL (3.5-6.1); RED CELL DISTRIBUTION WIDTH 15.7 % (11.5-14.5); WHITE BLOOD COUNT 7.7 10^3/uL (4.5-11.0)
[2019-03-26] MEDS ORDERED: Phytonadione 10 MG in Sodium Chloride 0.9% 50 ML IV STA (03:28)
[2019-03-26 03:34] LABS: HEMOGLOBIN 6.8 g/dL (14.0-18.0); MEAN CELL VOLUME 95.6 fl (80.0-105.0); PLATELET COUNT 27 10^3/uL (120.0-450.0)
[2019-03-26] MEDS ORDERED: NOREPINEPHRINE BIT/0.9 % NACL 8 MG/500 ML BAG IV ONE (03:43)
[2019-03-26] MEDS: NOREPINEPHRINE BIT/0.9 % NACL 4 MG/250 ML BAG IV PRN ×2 (03:46→07:44)
[2019-03-26 03:59] VITALS: O2SAT 100
[2019-03-26 06:36] LABS: ARTERIAL BLOOD GAS HCO3 7.3 mmol/L (21-28); ARTERIAL BLOOD GAS O2 SAT 25.4 % (95-98); ARTERIAL BLOOD GAS PCO2 40 mm/Hg (35-45); ARTERIAL BLOOD GAS PH 6.87 (7.35-7.45); ARTERIAL BLOOD GAS TCO2 8.5 mmol.L (22-28)
[2019-03-26 06:48] LABS: MEAN CELL VOLUME 96.9 fl (80.0-105.0); MEAN CORPUSCULAR HEMOGLOBIN 29.4 pg (25.0-35.0); MEAN CORPUSCULAR HGB CONC 30.4 g/dl (31.0-37.0); MEAN PLATELET VOLUME 9.9 fl (7.0-11.0); RBC 1.63 10^6/uL (3.5-6.1); RED CELL DISTRIBUTION WIDTH 16.2 % (11.5-14.5); WHITE BLOOD COUNT 10.8 10^3/uL (4.5-11.0)
[2019-03-26 06:52] LABS: HEMOGLOBIN 4.8 g/dL (14.0-18.0); PLATELET COUNT 23 10^3/uL (120.0-450.0)
[2019-03-26 06:58] LABS: ALBUMIN 1.5 g/dL (3.0-4.8); ALT/SGPT 43 U/L (7-56); AST/SGOT 394 U/L (17-59); BLOOD UREA NITROGEN 3 mg/dL (7-21); GFR NON-AFRICAN AMERICAN > 60; TROPONIN I 0.29 ng/mL
[2019-03-26 07:06] LABS: ARTERIAL BLOOD GAS HCO3 6.6 mmol/L (21-28); ARTERIAL BLOOD GAS O2 SAT 25.5 % (95-98); ARTERIAL BLOOD GAS PCO2 38 mm/Hg (35-45); ARTERIAL BLOOD GAS PH 6.85 (7.35-7.45); ARTERIAL BLOOD GAS TCO2 7.8 mmol.L (22-28)
[2019-03-26 07:21] VITALS: RESP 21
[2019-03-26 07:43] VITALS: BMI 32.8
[2019-03-26 08:16] VITALS: PULSE 115
--- NOTE | 2019-03-26 09:00 | RAD ---
Date of service: 03/25/2019 HISTORY: Hematemesis. COMPARISON: No prior. FINDINGS: LUNGS: No active pulmonary disease. PLEURA: No significant pleural effusion identified, no pneumothorax apparent. CARDIOVASCULAR: No atherosclerotic calcification present Venous access catheter in satisfactory position. OSSEOUS STRUCTURES: No significant abnormalities. VISUALIZED UPPER ABDOMEN: Normal. OTHER FINDINGS: None. IMPRESSION: No active disease.
--- NOTE | 2019-03-26 09:01 | RAD ---
Date of service: 03/26/2019 HISTORY: status post intubation COMPARISON: March 25, 2019. FINDINGS: LUNGS: No active pulmonary disease. PLEURA: No significant pleural effusion identified, no pneumothorax apparent. CARDIOVASCULAR: No atherosclerotic calcification present Venous access catheter in stable, satisfactory position. OSSEOUS STRUCTURES: No significant abnormalities. VISUALIZED UPPER ABDOMEN: Normal. OTHER FINDINGS: Satisfactory position of recently placed endotracheal tube. IMPRESSION: Satisfactory position of recently placed endotracheal tube. Otherwise no interval change.
--- NOTE | 2019-03-26 09:11 | CARD ---
APPROVED REPORT Date of service: 03/25/2019 EKG Measurement Heart [id number] <Conclusion> Sinus tachycardia Otherwise normal ECG
--- NOTE | 2019-03-26 09:17 | CP.PCM.PN ---
<Tejas Contreras R - Last Filed: 03/26/19 12:55> Subjective - Date & Time of Evaluation Date of Evaluation: 03/26/19 Time of Evaluation: 09:14 - Subjective Subjective: PGY-2 ICU progress note for Dr Alarcon Patient is intubated on PRVC and currently on 4 different pressors and receiving a unit of blood. He is unable to give history. Patient will go for TIPS procedure shortly with interventional radiology. Objective - Vital Signs/Intake and Output Vital Signs (last 24 hours): Temp Pulse Resp BP Pulse Ox 91.6 F L 115 H 21 53/28 L 100 03/26/19 08:10 03/26/19 08:10 03/26/19 07:20 03/26/19 08:00 03/26/19 08:10 Intake and Output: 03/26/19 03/26/19 06:59 18:59 Intake Total 625 200 Balance 625 200 - Medications Medications: Current Medications Sodium Chloride (Sodium Chloride 0.9%) 1,000 mls @ 100 mls/hr IV .Q10H GERMAN Last Admin: 03/25/19 22:50 Dose: 100 mls/hr Pantoprazole Sodium (Protonix 40mg Ivpb) 40 mg in 100 mls @ 20 mls/hr IVPB .Q5H GERMAN Last Admin: 03/26/19 07:40 Dose: 20 mls/hr Sodium Bicarbonate 150 meq/ (Sodium Chloride) 1,150 mls @ 100 mls/hr IV .[id number] STA Stop: 03/26/19 12:43 Last Admin: 03/26/19 01:36 Dose: 100 mls/hr Dopamine HCl/Dextrose (Dopamine 400mg/250ml D5w) 400 mg in 250 mls @ 56.132 mls/hr IV .Q4H28M PRN; Protocol PRN Reason: TITRATE PER MD ORDER Last Admin: 03/26/19 08:00 Dose: 20 mcg/kg/min, 56.132 mls/hr Ceftriaxone Sodium (Rocephin 2 Gm Ivpb) 2 gm in 100 mls @ 100 mls/hr IVPB DAILY GERMAN; Protocol Octreotide Acetate 1,250 mcg/ (Sodium Chloride) 252.5 mls @ 10.1 mls/hr IV .Q24H GERMAN; Protocol Last Admin: 03/26/19 03:36 Dose: 50 mcg/hr, 10.1 mls/hr NOREPINEPHRINE BIT/0.9 % NACL (Levophed 4 Mg/ 250 Ml Ns Premixed) 4 mg in 250 mls @ 15 mls/hr IV .[id number] PRN; Protocol PRN Reason: TITRATE PER MD ORDER Last Admin: 03/26/19 07:44 Dose: 15 mcg/min, 56.25 mls/hr Vasopressin 20 units/ Sodium (Chloride) 101 mls @ 9.09 mls/hr IV .Q11H7M GERMAN; Protocol Last Admin: 03/26/19 05:15 Dose: 9.09 mls/hr Phenylephrine HCl 40 mg/ (Sodium Chloride) 254 mls @ 38.1 mls/hr IV .Q6H40M PRN; Protocol PRN Reason: TITRATE PER MD ORDER Last Admin: 03/26/19 07:45 Dose: 100 mcg/min, 38.1 mls/hr - Labs Labs: 03/26/19 05:10 03/26/19 05:10 PT 17.7 SECONDS (9.4-12.5) H 03/25/19 22:37 INR 1.59 03/25/19 22:37 APTT 30.4 Seconds (26.9-38.3) 03/25/19 22:37 - Constitutional Appears: Chronically Ill - Head Exam Head Exam: ATRAUMATIC, NORMAL INSPECTION - Eye Exam Eye Exam: PERRL, Scleral icterus. absent: EOMI, Normal appearance - ENT Exam ENT Exam: Mucous Membranes Moist - Respiratory Exam Respiratory Exam: Rales, NORMAL BREATHING PATTERN - GI/Abdominal Exam GI & Abdominal Exam: Distended, Hypoactive Bowel Sounds - Extremities Exam Extremities Exam: Pedal Edema - Skin Skin Exam: Pallor - Additional Findings Additional findings: Patient was unable to cooperative with physical exam Assessment and Plan - Assessment and Plan (Free Text) Plan: Patient is a 53 year old male with a past medical history of EtOH Cirrhosis, EtOH Abuse (last drink on 03/25/19) who presented to the ED with hematemesis. As per records the patient became bradycardic and lost pulses. Patient achieved rosc status post CPR, atropine, and 2x epinephrine. Patient was intubated and placed on ventilator. Central line was placed. Patient then had emergent EGD and found to have bleeding esophageal varices which were banded (3 bands). Cardiovascular #GI hemorrhage -2/2 to bleeding esophageal varices. Patient was taken emergently for EGD where 3 bands were placed with eradication. After banding patient continued to bleed (although less volume compared to before) and patient remained hypotensive with 4 pressors. Decision was made to take patient for emergent TIPS procedure. -pantoprazole drip, octreotide drip -emergent tips procedure in discussion in IR -GI consulted, Dr Barrera. IR consulted, Dr Sj Ellington. #Hemorrhagic Shock -dopamine drip, norepinephrine drip, vasopressin drip, sodium bicarb @ 100cc/hr, NS @ 100cc/hr -7 units pRBCs transfused, will transfuse as needed -1 unit FFP transfused -1 bag platelet transfused #Hematemesis -suction prn -emergent tips procedure in discussion with IR #NSTEMI, likely 2/2 demand ischemia -echo ordered -cardiology consulted, Dr Sapp Pulmonary #Hypoxemic, Hypercapnic Respiratory Failure -#8 ETT was inserted 03/26/19, currently patient on PRVC with 100% FiO2, PEEP 0, RR 18, TV 450 Gastrointestinal #EtOH Cirrhosis -last drink 03/25, alcohol level 231 -ciwa #Ascities -f/u abdominal ultrasound #Elevated T. Bilirubin -likely 2/2 to cirrhosis #Elevated AST -likely 2/2 to alcohol intoxication -f/u hepatitis panel Infectious Disease -f/u mrsa screen, urine cx, blood cx -prophylactic coverage with rocephin 2g ivpb qd Electrolytes #Metabolic Acidosis -likely 2/2 to lactic acidosis -bicarb drip #Hypokalemia -repleted with Stephane pickett Case discussed with Dr Alarcon, Patient seen with Dr Alarcon <Agnes,Bilal - Last Filed: 03/26/19 18:18> Objective - Vital Signs/Intake and Output Vital Signs (last 24 hours): Temp Pulse Resp BP Pulse Ox 93.0 F L 115 H 21 66/29 L 100 03/26/19 10:06 03/26/19 10:00 03/26/19 07:20 03/26/19 10:00 03/26/19 10:00 Intake and Output: 03/26/19 03/26/19 06:59 18:59 Intake Total 625 239 Balance 625 239 - Medications Medications: Current Medications Sodium Chloride (Sodium Chloride 0.9%) 1,000 mls @ 100 mls/hr IV .Q10H GERMAN Last Admin: 03/25/19 22:50 Dose: 100 mls/hr Pantoprazole Sodium (Protonix 40mg Ivpb) 40 mg in 100 mls @ 20 mls/hr IVPB .Q5H GERMAN Last Admin: 03/26/19 07:40 Dose: 20 mls/hr Dopamine HCl/Dextrose (Dopamine 400mg/250ml D5w) 400 mg in 250 mls @ 56.132 mls/hr IV .Q4H28M PRN; Protocol PRN Reason: TITRATE PER MD ORDER Last Titration: 03/26/19 08:05 Dose: 25 mcg/kg/min, 70.165 mls/hr Ceftriaxone Sodium (Rocephin 2 Gm Ivpb) 2 gm in 100 mls @ 100 mls/hr IVPB DAILY GERMAN; Protocol Last Admin: 03/26/19 10:00 Dose: Not Given Octreotide Acetate 1,250 mcg/ (Sodium Chloride) 252.5 mls @ 10.1 mls/hr IV .Q24H GERMAN; Protocol Last Admin: 03/26/19 03:36 Dose: 50 mcg/hr, 10.1 mls/hr NOREPINEPHRINE BIT/0.9 % NACL (Levophed 4 Mg/ 250 Ml Ns Premixed) 4 mg in 250 mls @ 15 mls/hr IV .[id number] PRN; Protocol PRN Reason: TITRATE PER MD ORDER Last Titration: 03/26/19 07:50 Dose: 30 mcg/min, 112.5 mls/hr Vasopressin 20 units/ Sodium (Chloride) 101 mls @ 9.09 mls/hr IV .Q11H7M GERMAN; Protocol Last Admin: 03/26/19 05:15 Dose: 9.09 mls/hr Phenylephrine HCl 40 mg/ (Sodium Chloride) 254 mls @ 38.1 mls/hr IV .Q6H40M PRN; Protocol PRN Reason: TITRATE PER MD ORDER Last Titration: 03/26/19 08:00 Dose: 150 mcg/min, 57.15 mls/hr - Labs Labs: 03/26/19 05:10 03/26/19 05:10 PT 17.7 SECONDS (9.4-12.5) H 03/25/19 22:37 INR 1.59 03/25/19 22:37 APTT 30.4 Seconds (26.9-38.3) 03/25/19 22:37 Addendum Addendum: 03/26/19 18:15 MICU Attending Addendum Patient seen and examined Case d/w housestaff on rounds agree with resident note above Overnight events reviewed with accounting recruiter Dr Dixon patient still bleeding this am despite endo banding i notified Dr Ellington from IR and GI team after discussing the high risk of TIPS, family agreed to give it a try knowing there was a high likelihood he would not survive meanwhile patient transfused blood products taken to TIPS and did not survive CPR preformed but patient never acheived ROSC family updated by Dr Chandana Alarcon MD MICU Attending 65 mins of CC time spent talking to family, IR, GI, primary team and coordinat ing his care
[2019-03-26] MEDS ORDERED: Iodixanol 320 MG/ML 200 ML BOTTLE IV ONE (09:56)
[2019-03-26] MEDS ORDERED: Lidocaine PF 2% (5 ml) Inj (For Cardiac Arrhy) ONE ×2 (09:56→10:13)
[2019-03-26] MEDS ORDERED: cefTRIAXone 2 GM IN NS 2 GM/100 ML BAG IVPB SCH (10:00)
[2019-03-26] MEDS ORDERED: Nitroglycerin 50mg in D5W 50 MG/250 ML BOTTLE IV ONE (10:12)
[2019-03-26] MEDS ORDERED: Phenylephrine 10 mg/ml Inj ONE (10:15)
--- NOTE | 2019-03-26 10:15 | US ---
Date of service: 03/26/2019 HISTORY: ascities COMPARISON: None. TECHNIQUE: Sonographic evaluation of the abdomen. FINDINGS: LIVER: Measures 17.5 cm. Patent portal and hepatic venous systems. Hepatopedal blood flow. Fatty infiltration manifest ultrasonographically as increased echogenicity of the liver parenchyma. No mass. No intrahepatic bile duct dilatation. GALLBLADDER: Nonvisualization of the gallbladder fossa/gallbladder region. COMMON BILE DUCT: Measures 5.7 mm. No stones. No dilatation. PANCREAS: Obscured by overlying bowel gas. Non diagnostic assessment of the pancreas. RIGHT KIDNEY: Measures 5.2 x 10.5cm. Normal echogenicity. No calculus, mass, or hydronephrosis. LEFT KIDNEY: Measures 4.6 x 10.5cm. Normal echogenicity. No calculus, mass, or hydronephrosis. SPLEEN: Normal in size and contour. No mass. AORTA: No aneurysmal dilatation. IVC: Unremarkable. OTHER FINDINGS: Intra-abdominal ascites incompletely visualized. IMPRESSION: Hepatic steatosis without focal abnormality. Low volume intra-abdominal ascites Limitations of the current examination: Nondiagnostic study of pancreas and gallbladder.
[2019-03-26 10:28] VITALS: BP 66/29; TEMP 93
[2019-03-26] MEDS ORDERED: Iodixanol 320 mg/ml 150 ml Bottle IV ONE (11:28)
[2019-03-26 12:32] LABS: FOLATE 17.5 ng/mL
--- NOTE | 2019-03-26 12:55 | CP.PCM.PRO ---
Pronouncement of Note - Clinical Findings Physical Exam: No Response Verbal/Painful Stimuli, Absent Peripheral Puls es{Carotid & Femoral}, Absent Heart & Breath Sounds, No Pupillary Light Reflex, No Corneal Reflex, Pupils Fixed & Dilated, Absence of Vital Signs - Pronouncement Time Time of Pronouncement of : 12:23 - Notifications Pronouncement Notifications: Family Notified, Atending Notified Press Operator Heavy Duty Notified: Yes - Autopsy Autopsy Requested: No - [place] [id number]
--- NOTE | 2019-03-26 13:06 | PCM.RRT ---
GEOMAGNETICIAN Nurse Assessment - Situation Date: 03/26/19 I.Reason for GEOMAGNETICIAN - A) Acute Change in Patient: (Select all that apply): Acute change in heart rate less than 50 or greater than 120 Subjective: Code Carla This is a 53 year old male with a past medical history of EtOH Cirrhosis and EtOH Abuse who had code carla called today during TIPS procedure due to bradycardia and pulselessness. In brief summary, patient came to the hospital last night after vomiting blood and generalized weakness. Patient noted to have multiple episodes of hematemesis with hypotension and tachycardia in the ED and patient lost pulses and became bradycardic in the ED and achieved ROSC after CPR, epinephrine and atrophine. Patient had 3 bands placed for suspected variceal bleeding due to portal hypertension while in the ED. Patient subsequently intubated and placed on ventilator and central line placed. Patient then admitted to the ICU for hemorrhagic shock 2/2 UGIB. Today, patient taken for TIPS procedure and patient noted to have bradycardia and loss of pulses during the procedure. CPR was initiated with assisted ventillator for a total for 4 rounds with a total of 4 doses of epinephrine 1mg administered every 3-5 minutes. Patient continued to have asystole during CPR and return of spontaneous circulation was unable to be obtained. Time of was called at approximately 12:23pm. Family notified. - Neurological Status (Select all that apply): Lethargic. absent: Alert, Follows Commands - Constitutional Appears: Other (non responsive ) - Head Head Exam: ATRAUMATIC Additional Comments: blood noted around ET tube - Eyes Eye Exam: absent: EOMI - Respiratory Exam Additional comments: respiration through assisted ventilator mask - Cardiovascular Exam Cardiovascular Exam: Bradycardia - GI/Abdominal Exam GI & Abdominal Exam: Distended, Soft - Neurological Exam Neurological Exam: absent: Alert, Awake - Extremities Exam Extremities Exam: absent: Pedal Edema
--- NOTE | 2019-03-26 13:42 | PCM.PCON ---
History of Present Illness - History of Present Illness History of Present Illness: Palliative consult requested by Dr Lillian Palm Reason: Goals of care 53 year old male who prsnted to ED on 03/25 with hematemesis. Family also reported weakness,fatigue nose bleeds. History of cirrhosis secondary to alcohol abuse. He was tachycardic and hypotensive on arrival. Intubated. Had several episodes of bradycardia during this time and eventually lost pulse after intubation. Had ROSC post CPR, atropine, and 2x epinephrine. Ash-Casiano Class: C Meld-NA: 19 Labs:Wbc 10.8, Hgb 4.8, RBC 15.8, Plt 23, NA 148, K 4.8,BUN 3, Sports Internship 1.2, Dwayne 6.0, T Bili 2.2, AST 394, Troponin 0.29 PMH: EtOH Cirrhosis, EtOH Abuse (last drink on 03/25/19) PSH: Denied by daughter Family History Non Contributory. Social History: [id number] beers daily (last drink today 03/25) No tobacco use or drug use. . Advance Care Planning: No advance Directive Review of Systems: Intubated, unable to obtain Review of Systems - Review of Systems All systems: reviewed and no additional remarkable complaints except Physical Exam - Constitutional Appears: Chronically Ill - Head Exam Head Exam: NORMOCEPHALIC - Eye Exam Eye Exam: Normal appearance - Respiratory Exam Respiratory Exam: Decreased Breath Sounds - Cardiovascular Exam Cardiovascular Exam: Tachycardia, +S1, +S2 - GI/Abdominal Exam GI & Abdominal Exam: Diminished Bowel Sounds, Distended - Extremities Exam Extremities exam: Positive for: pedal edema - Neurological Exam Neurological exam: Altered - Skin Skin Exam: Dry, Pallor - Additional Findings Additional findings: Palliative performance scale rating 10% Palliative Care - Goals Treatment Goal(s): Alleviate symptoms End of life care discussed: Yes - Plan Interdisciplinary involved: Physician () Assessment & Plan - Assessment and Plan (Free Text) Assessment: 53 year old male with history of alcohol abuse and cirrhosis who is admitted with hepatic failure, severe anemia, thrombocytopenia, hematemesis, cardio pulmonary arrest Family at bedside. Goals of care discussion ensued. Daughter verbalized that she knows her father is seriously ill. She is aware that he will likely not survive this admission. Offered option for comfort care. Daughter states that her father had told her that he wants everything done to prolong life. Psychical support provided. The patient . End of life and bereavement counselling provided to family. Time spent with family in goals of care and end of life counseling, 60 minutes Plan: Goals of care End of life and bereavement counseling Thank you for allowing me to participate in this patients care
--- NOTE | 2019-03-26 15:49 | CP.PCM.DIS ---
Provider - Provider Date of Admission: 03/25/19 23:11 Attending physician: Dora Palm DO Primary care physician: NO PRIMARY CARE PROVIDER Consults: 03/26/19 02:23 Physician Consult Routine Comment: Consulting Provider: Anastacia Barrera Consulting Physician: Anastacia Barrera Reason for Consult: GI hemorrhage, Hemorrhagic Shock 03/26/19 02:24 Physician Consult Routine Comment: Consulting Provider: Mio Jarvis Consulting Physician: Mio Jarvis Reason for Consult: GI hemorrhage 03/26/19 06:26 Physician Consult Routine Comment: Consulting Provider: Sj Ellington Consulting Physician: Sj Ellington Reason for Consult: emergent tips 03/26/19 07:16 Physician Consult Routine Comment: Consulting Provider: Phil Sapp Consulting Physician: Phil Sapp Reason for Consult: s/p cardiac arrest, elevated troponins s/p chest compressions 03/26/19 10:04 Palliative Care Consult Routine Comment: Consulting Provider: Kina Brady Physician Instructions: Reason For Exam: code status clarification 03/26/19 10:08 Palliative Care Consult Routine Comment: Consulting Provider: Kina Brady Physician Instructions: Reason For Exam: GI bleed, cirrhosis Time Spent in preparation of Discharge (in minutes): 45 Diagnosis - Discharge Diagnosis (1) Status: Acute (2) Upper gastrointestinal bleed Status: Acute Hospital Course - Lab Results Lab Results: Most Recent Lab Values WBC 10.8 10^3/uL (4.5-11.0) D 03/26/19 05:10 RBC 1.63 10^6/uL (3.5-6.1) L 03/26/19 05:10 Hgb 4.8 g/dL (14.0-18.0) L* D 03/26/19 05:10 Hct 15.8 % (42.0-52.0) L* 03/26/19 05:10 MCV 96.9 fl (80.0-105.0) 03/26/19 05:10 MCH 29.4 pg (25.0-35.0) 03/26/19 05:10 MCHC 30.4 g/dl (31.0-37.0) L 03/26/19 05:10 RDW 16.2 % (11.5-14.5) H 05/07/19 05:10 Plt Count 23 10^3/uL (120.0-450.0) L* 03/26/19 05:10 MPV 9.9 fl (7.0-11.0) 03/26/19 05:10 Neut % (Auto) 56.1 % (50.0-68.0) 03/26/19 02:29 Lymph % (Auto) 32.0 % (22.0-35.0) 03/26/19 02:29 Irwin % (Auto) 9.4 % (1.0-6.0) H 03/26/19 02:29 Eos % (Auto) 2.0 % (1.5-5.0) 03/26/19 02:29 Baso % (Auto) 0.5 % (0.0-3.0) 03/26/19 02:29 Lymph # (Auto) 2.5 (1.2-3.4) 03/26/19 02:29 Irwin # (Auto) 0.7 (0.1-0.6) H 03/26/19 02:29 Eos # (Auto) 0.2 (0.0-0.7) 03/26/19 02:29 Baso # (Auto) 0.04 K/mm3 (0.0-2.0) 03/26/19 02:29 Absolute Neuts (auto) 4.31 (1.4-6.5) 03/26/19 02:29 PT 17.7 SECONDS (9.4-12.5) H 03/25/19 22:37 INR 1.59 03/25/19 22:37 APTT 30.4 Seconds (26.9-38.3) 03/25/19 22:37 pCO2 38 mm/Hg (35-45) 03/26/19 06:50 pO2 19.0 mm/Hg (80-100) L* 03/26/19 06:50 HCO3 6.6 mmol/L (21-28) L* 03/26/19 06:50 ABG pH 6.85 (7.35-7.45) L* 03/26/19 06:50 ABG Total CO2 7.8 mmol.L (22-28) L 03/26/19 06:50 ABG O2 Saturation 25.5 % (95-98) L 03/26/19 06:50 ABG Base Excess -26.8 mmol/L (-2.0-3.0) L 03/26/19 06:50 ABG Potassium 5.5 mmol/L (3.6-5.2) H 03/26/19 06:50 Sodium 147.0 mmol/L (132-148) 03/26/19 06:50 Chloride 116.0 mmol/L (98-107) H 03/26/19 06:50 Glucose 76 mg/dl (75-110) 03/26/19 06:50 Lactate 16.3 mmol/L (0.7-2.1) H* 03/26/19 06:50 FiO2 100.0 % 03/26/19 06:50 Crit Value Called To Hyacinth nava tax associate attorney 03/26/19 06:50 Crit Value Called By Arnaldo 03/26/19 06:50 Blood Gas Notified Time 705 03/26/19 06:50 Sodium 148 mmol/L (132-148) 03/26/19 05:10 Potassium 5.3 mmol/L (3.6-5.0) H 03/26/19 05:10 Chloride 116 mmol/L (98-107) H 03/26/19 05:10 Carbon Dioxide 8 mmol/L (21-33) L D 03/26/19 05:10 Anion Gap 29 (10-20) H 03/26/19 05:10 BUN 3 mg/dL (7-21) L 03/26/19 05:10 Creatinine 1.2 mg/dl (0.8-1.5) 03/26/19 05:10 Est GFR ( Amer) > 60 03/26/19 05:10 Est GFR (Non-Af Amer) > 60 03/26/19 05:10 Random Glucose 94 mg/dL (70-110) 03/26/19 05:10 Hemoglobin A1c 5.2 % (4.2-6.5) 03/26/19 02:29 Calcium 6.0 mg/dL (8.4-10.5) L* 03/26/19 05:10 Magnesium 2.1 mg/dL (1.7-2.2) 03/25/19 22:37 Iron 133 ug/dL (45-180) 03/25/19 22:37 TIBC 242 ug/dL (261-462) L 03/25/19 22:37 % Saturation 55 % (20-55) 03/25/19 22:37 Total Bilirubin 2.2 mg/dL (0.2-1.3) H 03/26/19 05:10 AST 394 U/L (17-59) H D 03/26/19 05:10 ALT 43 U/L (7-56) 03/26/19 05:10 Alkaline Phosphatase 49 U/L (38-126) 03/26/19 05:10 Lactate Dehydrogenase 599 U/L (333-699) 03/25/19 22:37 Total Creatine Kinase 369 U/L (35-230) H 03/25/19 22:37 CK-MB (CK-2) 3.3 ng/mL (0.0-3.6) 03/25/19 22:37 CK-MB (CK-2) % Cancelled 03/25/19 22:37 Troponin I 0.29 ng/mL H* D 03/26/19 05:10 Total Protein 2.9 g/dL (5.8-8.3) L 03/26/19 05:10 Albumin 1.5 g/dL (3.0-4.8) L 03/26/19 05:10 Globulin 1.4 gm/dL 03/26/19 05:10 Albumin/Globulin Ratio 1.0 (1.1-1.8) L 03/26/19 05:10 Triglycerides 229 mg/dL (35-160) H 03/25/19 22:37 Cholesterol 193 mg/dL (130-200) 03/25/19 22:37 LDL Cholesterol Direct 112 mg/dL (0-129) 03/25/19 22:37 HDL Cholesterol 17 mg/dL (29-60) L 03/25/19 22:37 Folate 17.5 ng/mL 03/25/19 22:37 Arterial Blood Potassium 5.5 mmol/L (3.6-5.2) H 03/26/19 06:50 Alcohol, Quantitative 231 mg/dL (0-10) H 03/25/19 22:37 Blood Type A POSITIVE 03/25/19 22:37 Blood Type Confirm A POSITIVE 03/25/19 22:39 Antibody Screen Negative 03/25/19 22:37 Crossmatch See Detail 03/25/19 22:37 BBK History Checked No verified bt 03/25/19 22:37 - Hospital Course Hospital Course: James Baxter DO, PGY-1 Hospitalist Discharge Summary for Dr. Lillian Palm Prior to admission: Patient was a 53 year old male with a past medical history of EtOH Cirrhosis, EtOH Abuse (last drink on 03/25/19) who presented to the emergency department for evaluation and treatment of vomiting blood. As per records, the patient complained of bright red blood per mouth. He admitted ongoing EtOH abuse and generalized weakness and fatigue. Further subjective data was unable to be ascertained from the patient at the time due to critical clinical condition. He was subsequently admitted to MICU for aggressive management of hypovolemic shock 2/2 UGI bleed. Hospitalization course: In ED, patient was placed on protonix and octreotide gtt immediately. Patient was emergently intubated, and underwent emergent banding of esophageal varices per GI. However, patient's hypovolemic shock con tinued to worsen and he remained persistently hypotensive despite placement of R IJ TLC and maximum pressor support. He underwent emergent TIPS procedure but went into PEA arrest following the procedure. CPR was initiated for 4 rounds with a total of 4 doses of epinephrine 1mg administered every 3-5 minutes. Patient continued to have asystole during CPR and return of spontaneous circulation was unable to be obtained. Time of was called at approximately 12:23pm. Family was informed of patient's cardiac arrest immediately after code was called and were kept informed throughout the process. Discharge Exam - Head Exam Head Exam: NORMOCEPHALIC Additional comments: patient assessed this AM and on rounds prior to expiration but patient coded and in vascular lab after TIPS procedure Discharge Plan - Follow Up Plan Condition: GUARDED Disposition: HOME/ ROUTINE Referrals: PCP,NO [Primary Care Provider] - Follow up with primary
--- NOTE | 2019-03-26 16:38 | VASCULAR ---
PROCEDURE: Transjugular intrahepatic portosystemic shunt CLINICAL HISTORY: ETOH cirrhosis. For seal hemorrhage. Recent EGD with banding. Continued bleeding with hemorrhagic shock. PHYSICIAN(S): Sj Ellington M.D. TECHNIQUE: The TIPS procedure was explained in detail to the patient's family along with the risks, benefits and alternatives. The patient is clinically unstable and in hemorrhagic shock. The patient was brought to the vascular suite and placed supine on the arteriogram table. An arterial line was placed in the right radial artery due to the patient's persistent hypotension and multiple pressors. The patient's right IJ triple-lumen catheter was prepped and draped usual sterile fashion. 1 percent xylocaine was used to anesthetize the skin and soft tissues. A 0.035 guidewire was advanced through the triple-lumen catheter into the IVC. An 11 Irish short sheath was placed in the right atrium. An MPA catheter was used to select the right hepatic vein. The catheter was advanced to which position. Wedged hepatic venogram was performed. This revealed somewhat stagnant blood flow, presumably related to the patient's low blood pressure and multiple pressors. A support wire was placed in the right hepatic vein. The 9 Irish angled sheath was advanced into the proximal right hepatic vein. Over a support wire the [place] needle was advanced into the right hepatic vein. Approximately 7 punctures were necessitated to enter a right portal branch. Blood was aspirated and contrast injected confirming a portal puncture. A 0.035 angled Glidewire was advanced into the portal vein. Significant tortuosity was present. A 0.035 balloon would not track through the cirrhotic parenchyma. Exchange is made for a 0.018 V-18 support wire. A 5 mm balloon was used to dilate the parenchymal tract. Exchange was made for a 0.035 support wire. The parenchymal tract was then dilated with an 8 mm balloon. A 10 mm Viatorr stent graft was deployed from the right portal vein to the right hepatic vein. This was dilated with a 10 mm balloon. The patient was bradycardic and hypotensive. Atropine and epinephrine were given. The patient was pulseless and CPR was initiated. A right ventricular temporary pacemaker was placed in an attempt to reestablish a rhythm. After approximately 30 minutes of resuscitation, CPR was discontinued and the patient declared. His family was kept informed of the issues throughout the resuscitation. FINDINGS: The wedged hepatic venogram demonstrates opacification of the right intrahepatic portal system, consistent with portal hypertension. The extrahepatic portal vein is patent. There is very limited flow, presumably related to the patient's severe hypotension and multiple pressors. The tips stent graft was placed from the right hepatic vein to the right portal vein. The TIPS graft was patent with flow. Embolization of varices was not performed IMPRESSION: 1. 10 mm Viatorr stent graft placement from the right hepatic vein to the right portal vein. The TIPS shunt was patent. 2. The patient was clinically unstable requiring multiple pressors and transfusions throughout the procedure. Patient became bradycardic and an asystolic after TIPS placement and dilatation. CPR resuscitation along with a temporary RV pacemaker were performed. These procedures were unsuccessful and the patient
--- NOTE | 2019-03-26 21:48 | CON ---
DATE: 03/26/2019 CONSULTATION REQUESTING PHYSICIAN: Dr. Palm. REASON FOR CONSULTATION: Elevated cardiac enzymes, hypotension. HISTORY OF PRESENT ILLNESS: This is a 53-year-old man with a history of alcoholic cirrhosis and chronic alcohol abuse who presented to the emergency room with hematemesis. He has had a rapid deterioration with evidence of persistent upper GI bleeding and the plan is being made for emergency angiography and possible TIPS procedure. He was seen in the catheterization lab being prepared for an intervention. He is currently intubated and hypotensive. His cardiac enzymes lizett from nondetectable to a troponin of 0.29. Rest of the history is via the chart. He has a longstanding history of alcohol abuse and chronic alcoholic cirrhosis. CURRENT MEDICATIONS: His current medications include IV dopamine, norepinephrine, somatostatin, phenylephrine, Protonix, Rocephin, sodium bicarbonate, and vasopressin. ALLERGIES: He reportedly had a reaction to guaifenesin in the past. SOCIAL HISTORY: No tobacco abuse, but heavy alcohol abuse in the past. FAMILY HISTORY: Unobtainable. REVIEW OF SYSTEMS: Unobtainable at the present time. PHYSICAL EXAMINATION: GENERAL: He is a critically ill-appearing, middle-aged man. VITAL SIGNS: His blood pressure is 66/40 with a pulse of 116, in sinus, respirations are 26. He is hypothermic at 93 degrees Fahrenheit. HEENT: He is orally intubated. CHEST: Lungs appear clear anteriorly. HEART: Distant tones noted. ABDOMEN: Somewhat tense and distended. EXTREMITIES: 1+ edema. NEUROLOGIC: Unable to fully assess at the present time. DIAGNOSTIC DATA: Presenting hemoglobin was 9.4, repeat is 4.8; hematocrit is 15.8. White count is 10.8, platelet count is 23,000. Arterial blood gas showed a pH of 7, pCO2 of 34, pO2 of 45; repeat pH is 6.85, pCO2 of 38 and pO2 of 19, potassium 5.3, BUN and creatinine are 3 and 1.2. Troponin is noted. Alcohol level was 231. Electrocardiogram revealed sinus tachycardia, otherwise no acute abnormalities. Chest x-ray reveals a normal cardiac silhouette with clear lung king. IMPRESSION: 1. Hypovolemic shock secondary to acute and severe gastrointestinal bleeding. 2. Elevated troponin, likely secondary to stress of illness. 3. Rest of the problems as noted. RECOMMENDATIONS: The pressor support should continue for now. The patient is to undergo a possible TIPS procedure as a salvage procedure. Aggressive packed cells and blood transfusions should proceed. His overall prognosis is extremely guarded. If he survives, an echocardiogram and further cardiac evaluation can be planned. I will follow along as needed. Phil Sapp MD MTDD
== END 2019-03-26 12:30 | DRG 950 ==
LOC: ED 22:05 → ERH 23:11 → CCU 03-26 05:04
PROVIDERS: ADMIT Hospitalist; ATTEND Hospitalist
PROC: 30233N1 Transfusion of Nonautologous Red Blood Cells into Peripheral Vein, Percutaneous Approach (ICD-10-PCS; 2019-03-25)
PROC: 06L38CZ Occlusion of Esophageal Vein with Extraluminal Device, Via Natural or Artificial Opening Endoscopic (ICD-10-PCS; 2019-03-26)
PROC: 05HM33Z Insertion of Infusion Device into Right Internal Jugular Vein, Percutaneous Approach (ICD-10-PCS; 2019-03-26)
PROC: B543ZZA Ultrasonography of Right Jugular Veins, Guidance (ICD-10-PCS; 2019-03-26)
PROC: 3E033XZ Introduction of Vasopressor into Peripheral Vein, Percutaneous Approach (ICD-10-PCS; 2019-03-26)
PROC: 5A1935Z Respiratory Ventilation, Less than 24 Consecutive Hours (ICD-10-PCS; 2019-03-26)
PROC: 0BH17EZ Insertion of Endotracheal Airway into Trachea, Via Natural or Artificial Opening (ICD-10-PCS; 2019-03-26)
PROC: 30233K1 Transfusion of Nonautologous Frozen Plasma into Peripheral Vein, Percutaneous Approach (ICD-10-PCS; 2019-03-26)
PROC: 06183J4 Bypass Portal Vein to Hepatic Vein with Synthetic Substitute, Percutaneous Approach (ICD-10-PCS; principal; 2019-03-26 02:30)
DX: K70.31 Alcoholic cirrhosis of liver with ascites (principal); I85.11 Secondary esophageal varices with bleeding; R57.1 Hypovolemic shock; J96.92 Respiratory failure, unspecified with hypercapnia; J96.91 Respiratory failure, unspecified with hypoxia; E87.4 Mixed disorder of acid-base balance; R57.8 Other shock; K76.6 Portal hypertension; F10.10 Alcohol abuse, uncomplicated; E87.6 Hypokalemia; Y90.7 Blood alcohol level of 200-239 mg/100 ml